=== PATIENT | female | born 1965 | race Caucasian/White ===

== ENCOUNTER 2016-03-19 00:12 | Emergency (ER) | payer OTHER ==
[2016-03-19 00:16] VITALS: BMI 52.7
[2016-03-19 00:33] VITALS: TEMP 98.2
[2016-03-19] MEDS ORDERED: METHYLPREDNISOLONE 125 MG/2 ML VIAL IV ONE (00:44)
[2016-03-19] MEDS ORDERED: ALBUTEROL 0.083% 3 ML NEB NEB ONE ×3 (00:45→03:05)
[2016-03-19 00:47] LABS: AUTOMATED BASOPHIL 0.8 % (0-2); AUTOMATED EOSINOPHIL 7.3 % (0-5); AUTOMATED LYMPH 37.7 % (17-44); AUTOMATED MONOCYTE 5.5 % (3-10); AUTOMATED NEUTROPHIL 48.7 % (45-76); MPV 8.5 fL (7.4-10.4)
--- NOTE | 2016-03-19 01:09 | EDPRACDOC ---
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 Home Medications: Home Medications Amoxicillin Trihydrate [Amoxicillin] 500 mg PO TID #30 tab 02/19/16 Hydrocodone Bit/Homatropine [Hycodan Syrup] 5 ml PO Q6 #480 syrup 02/19/16 Prednisone [Deltasone, Orasone] 2 tabs PO DAILY #20 tab 02/19/16 Azithromycin [Zithromax] 250 mg PO DAILY #6 tablet 03/19/16 Prednisone [Deltasone, Orasone] 60 mg PO DAILY #15 tab 03/19/16 Allergies/Adverse Reactions: Allergies Allergy/AdvReac Type Severity Reaction Status Date / Time adenosine Allergy See Verified 02/19/16 12:25 Comments aspirin Allergy Difficulty Verified 02/19/16 12:25 Breathing ibuprofen [From Advil] Allergy Difficulty Verified 02/19/16 12:25 Breathing NSAIDS (Non-Steroidal Allergy Difficulty Verified 02/19/16 12:25 Anti-Inflamma Breathing - History of Present Illness Onset: 2 days HPI: h/o asthma, inc SOB and wheezing despite inhalers at home. no F/C or productive cough, BIB EMS had albuterol in route, no hypoxia. last admit for asthma 2014. Shortness of Breath: Moderate Relevant History: Reports: Asthma Cough: Reports: Non-productive Rhinorrhea: Reports: None Ear Symptoms: Reports: None SOB Worsens with: Reports: Exertion SOB Improves with: Reports: Inhaler Recently treated infections:: Denies: Pneumonia Associated Signs and symptoms: Denies: Sore Throat, Vomiting, Rash - Treatment Prior to ED Arrival Reported Medications/Treatment [employer] Treated With Medication [employer] YES Meds/Treatments Given Neb Treatment(Albuterol) Medications [employer] (Medication/ DuoNeb Dose/Time) IV No ED Past Medical History - History Reviewed Yes Nurses notes reviewed and agree except as marked - Patient Medical History Cardiac History: Reports: Atrial Fibrillation, Hypertension, Cardiac Catheterization (With ablation procedure 1989.). Denies: Coronary Artery Disease Respiratory History: Reports: Asthma, Cough, Pneumonia (AUGUST 2013) GI/ History: Reports: Urinary Tract Infection Musculoskeletal History: Reports: Arthritis, Osteoarthritis Psychological History: Denies: Depression, Substance Use Disorder Systemic History: Denies: Cancer, Diabetes, Hypothyroidism Surgical History: Reports: Hysterectomy (Partial hysterectomy in 1999), Angioplasty, Cardiac Catheterization (With ablation procedure 1989.), Other ( right ankle ORIF fracture, subsequent removal of hardware) - Family Medical History Reports: Hypertension (And hyperlipidemia in patient's Mother.), Cancer ( Leukemia in patient's father), Cardiac Disorders (Unspecified heart disease in father.), Respiratory Disorders (COPD/emphysema in patient's father). Denies: Diabetes, Stroke - Social Medical History Smoking Status: Never smoker Social History: Denies: Substance Use Disorder EDM Review of Systems - Review of Systems ROS Negative Except as Marked: Yes All systems reviewed and were negative except as marked - Physical Exam Constitutional: No apparent distress, Alert (Awake), Well nourished, Well appearing Oriented to: Time, Person, Place Last recorded Vital Signs: Last Vital Signs Temp 98.2 F 03/19/16 00:27 Pulse 99 03/19/16 00:27 Resp 24 03/19/16 00:27 BP 204/81 H 03/19/16 00:27 Pulse Ox 99 03/19/16 00:27 Oxygen Pulse Oxygen Saturation 99 O2 Device Oxygen Flow Rate Fraction of Inspired Oxygen ( FIO2) - HEENT Head: Normal ( normocephalic) Eye Exam: Normal (PERRL, EOMI, Sclera white) Oropharynx: Normal (Pharynx:Moist without exudate,Gums-no swelling) Tympanic Membrane: Normal ENT EAC: Normal TMJ: Normal Nose: No Symptoms Reported (septum midline) Neck: Normal (FROM, trachea at midline) - Respiratory/Cardiovascular Respiratory: Wheezes (exp wheezes bilat, mild dec breath sounds, no resp distress) Cardiovascular: Normal (RRR without murmur, gallop or rub) - GI Auscultation: Normal (NABS) Palpation: Normal (Soft,No rebound or guarding, non distended) Tenderness: Non tender Rene's Sign: Negative - Musculoskeletal Back: Normal (Non-Tender) Extremities: Normal (Normal tone, Pulses 2+ No cyanosis or edema, FROM) - Integumentary Skin: Normal, Warm, Dry Lymphatics: Normal (no adenopathy) - Neurologic Memory Impaired: Normal Motor Function: Normal (Normal tone, Pulses 2+ No cyanosis or edema, FROM) Cranial Nerve: Normal (CN II-X11 intact sensation, strength 5/5) Cerebellar: Normal Mood Description: Normal Perception: Normal ED SOB MDM - Re-evaluation Re-evaluation 1 Re-evaluation Time: 03:48 (feeling better, lung sounds improved, she would like to be discharged, agres to f/u outpatient. Rx provided. She has inhaler at home. ) - Results Result Diagrams: 03/19/16 00:25 03/19/16 00:25 Results: WBC 13.1 xk/uL (3.8-10.8) H 03/19/16 00:25 RBC 4.45 xM/uL (4.20-5.40) 03/19/16 00:25 Hgb 12.9 g/dL (12.0-16.0) 03/19/16 00:25 Hct 39.1 % (36-47) 03/19/16 00:25 MCV 88 fL (81-99) 03/19/16 00:25 MCH 28.9 pg (27-32) 03/19/16 00:25 MCHC 32.9 g/dl (33-36) L 03/19/16 00:25 RDW 15.6 % (11.5-14.5) H 03/19/16 00:25 Plt Count 268 xk/uL (130-400) 03/19/16 00:25 MPV 8.5 fL (7.4-10.4) 03/19/16 00:25 Neut % (Auto) 48.7 % (45-76) 03/19/16 00:25 Lymph % (Auto) 37.7 % (17-44) 03/19/16 00:25 [place] % (Auto) 5.5 % (3-10) 03/19/16 00:25 Eos % (Auto) 7.3 % (0-5) H 03/19/16 00:25 Baso % (Auto) 0.8 % (0-2) 03/19/16 00:25 Absolute Neuts (auto) 6.29 xk/uL (1.7-8.2) 03/19/16 00:25 Absolute Lymphs (auto) 4.85 xk/uL (0.65-4.75) H 03/19/16 00:25 Lab Results 03/19/16 00:25 WBC 13.1 H RBC 4.45 Hgb 12.9 Hct 39.1 MCV 88 MCH 28.9 MCHC 32.9 L RDW 15.6 H Plt Count 268 MPV 8.5 Neut % (Auto) 48.7 Lymph % (Auto) 37.7 [place] % (Auto) 5.5 Eos % (Auto) 7.3 H Baso % (Auto) 0.8 Absolute Neuts (auto) 6.29 Absolute Lymphs (auto) 4.85 H - Diagnostic Imaging Chest Image interpreted by: Radiologist Diagnostic Imaging Comments: Exam(s): [id number] RAD/DG CHEST PORTABLE CLINICAL DATA: Respiratory distress. Congestion for 2 days. Wheezing. EXAM: PORTABLE CHEST 1 VIEW COMPARISON: 02/19/2016 FINDINGS: Mild enlargement of the cardiac silhouette, may be accentuated by technique. Progressive bronchial thickening and interstitial change. No confluent airspace disease. No pleural effusion or pneumothorax. Detailed evaluation limited by soft tissue attenuation from body habitus. IMPRESSION: Progressive bronchial thickening from prior exam. Mild enlargement of cardiac silhouette, likely accentuated by technique. Electronically Signed By: Jammie Lopez M.D. On: 03/19/2016 01:08 Decision Time to Discharge: 03:49 - Departure Yes I personally saw and evaluated the patient. Disposition: Home Condition: Improved Final Diagnosis: Acute asthma Instructions: Asthma (ED) Education/Counseling Given To: Patient Education/Counseling Given Regarding: Diagnosis, Treatment, Follow Up Prescriptions: Azithromycin [Zithromax] 250 mg PO DAILY #6 tablet Prednisone [Deltasone, Orasone] 60 mg PO DAILY #15 tab
[2016-03-19 01:22] LABS: BLOOD UREA NITROGEN 8 MG/DL (7-17); CALC CORRECTED 9.6 MG/DL (8.4-10.2); CALCIUM 9.2 MG/DL (8.4-10.2); CALCULATED OSMOLALITY 270 MOs/Kg (270-290); CHLORIDE 100 mEq/L (98-107); GLUCOSE 114 MG/DL (70-99); SODIUM LEVEL 141 mEq/L (137-146); TOTAL PROTEIN 6.9 G/DL (6.3-8.2)
[2016-03-19] MEDS ORDERED: POTASSIUM CHLORIDE 20 MEQ TAB PO ONE (01:41)
[2016-03-19 01:47] VITALS: PULSE 91
[2016-03-19 02:19] LABS: ALLEN'S TEST PASS
[2016-03-19 02:20] LABS: ABG Draw Site Left Radial; BEb 6.6 (+/- 2); TCO2 31.7 MMOL/L (23-27)
[2016-03-19] MEDS: ALBUTEROL 0.083% 3 ML NEB NEB ONE ×2 (02:25→03:32)
[2016-03-19] MEDS ORDERED: AZITHROMYCIN 250 MG TAB PO ONE (03:06)
[2016-03-19] MEDS ORDERED: ALBUTEROL 6.7 GM MDI INH ONE ×2 (03:54→04:05)
[2016-03-19 04:02] VITALS: BP 148/76
== END 2016-03-19 04:01 | disposition home or self-care (01) ==
LOC: ED 00:12
DX: J45.909 Unspecified asthma, uncomplicated (principal)
CPT/HCPCS: 36415; 36600; 71010; 80053; 82803; 84484; 85025; 87040; 94640; 96374; 99283; J2930; J3490